=== PATIENT | female | born 1945 ===

== ENCOUNTER 2019-11-28 20:02 | Observation (INO) | payer MEDICARE, OTHER ==
[2019-11-28] MEDS ORDERED: Aspirin 81 MG Tab.Chew PO ONE (20:20)
[2019-11-28] MEDS: Sodium Chloride 0.9% 10 ML Syringe FLUSH PRN (20:25)
--- NOTE | 2019-11-28 20:38 | EDM.PDOC ---
<Roxy Carroll Cora - Last Filed: 11/28/19 22:36> ED HPI GENERAL MEDICAL PROBLEM - General Chief Complaint: Chest Pain Stated Complaint: CHEST PAIN (HEART ATTACK 05/2019) Time Seen by Provider: 11/28/19 20:19 Source of Information: Reports: Patient, RN Notes Reviewed History Limitations: Reports: No Limitations - History of Present Illness INITIAL COMMENTS - FREE TEXT/NARRATIVE: Patient is a 73-year-old female who presents to the ED for evaluation of her chest pain. Patient notes that around 1:00 PM today, she developed some chest pressure, but then it went away. She states that the pain returned after she ate supper at about 730, she states this was when it was at its worst. She states that she is having chest pressure with bilateral shoulder pain, she states that this is similar to symptoms she was having when she had her heart attack in May 2019. For which she subsequently had 2 stents placed in the RCA. This was performed by a provider in [place]. Patient states she did not take anything at home for management of this, she came to the ER for evaluation, but she states she is chest pain-free at this time. She denies any other sick- like symptoms, fever/chills, cough/shortness of breath, nausea/vomiting/diarrhea, she did not become diaphoretic. Bilateral Shoulder Pain Score (Numeric/FACES): 4 - Related Data Allergies Allergy/AdvReac Type Severity Reaction Status Date / Time No Known Allergies Allergy Verified 11/28/19 20:11 Home Meds: Home Meds Aspirin [Aspirin EC] 81 mg PO DAILY 11/28/19 [History] Metoprolol Tartrate 12.5 mg PO BID 11/28/19 [History] Ticagrelor [Brilinta] 90 mg PO BID 11/28/19 [History] atorvaSTATin Calcium [Atorvastatin Calcium] 80 mg PO DAILY 11/28/19 [History] lisinopriL [Lisinopril] 5 mg PO DAILY 11/28/19 [History] Past Medical History Cardiovascular History: Reports: High Cholesterol, Hypertension, [place] (May 2019) [employer] History: Reports: - Past Surgical History HEENT Surgical History: Reports: Cataract Surgery Cardiovascular Surgical History: Reports: Coronary Artery Stent (x2 in RCA) Social & Family History - Family History Family Medical History: Noncontributory - Tobacco Use Smoking Status *Q: Current Every Day Smoker Years of Tobacco use: 50 Packs/Tins Daily: 1 ED ROS GENERAL - Review of Systems Review Of Systems: Comprehensive ROS is negative, except as noted in HPI. ED EXAM, GENERAL - Physical Exam Exam: See Below Exam Limited By: No Limitations General Appearance: Alert, WD/WN, No Apparent Distress Eye Exam: Bilateral Eye: EOMI, Normal Inspection, PERRL Ears: Normal External Exam Throat/Mouth: Normal Inspection, Normal Lips, Normal Teeth, Normal Gums, Normal Oropharynx, Normal Voice, No Airway Compromise Head: Atraumatic, Normocephalic Neck: Normal Inspection Respiratory/Chest: No Respiratory Distress, Lungs Clear, Normal Breath Sounds, No Accessory Muscle Use, Chest Non-Tender Cardiovascular: Normal Peripheral Pulses, Regular Rate, Rhythm, No Edema, No Murmur Peripheral Pulses: 3+: Radial (L), Radial (R) GI/Abdominal: Normal Bowel Sounds, Soft, Non-Tender, No Distention, No Mass Extremities: Normal Inspection, Normal Capillary Refill Neurological: Alert, Oriented, Normal Cognition, No Motor/Sensory Deficits Psychiatric: Normal Affect, Normal Mood Skin Exam: Warm, Dry, Intact, Normal Color, No Rash EKG INTERPRETATION EKG Date: 11/28/19 Time: 20:07 Rhythm: NSR Rate (Beats/Min): 80 [place]: Normal P-Wave: Present QRS: Normal ST-T: Depressed (slight depression in V3-V5, no t wave change) QT: Normal Comparison: NA - No Prior EKG EKG Interpretation Comments: Slight ST depression in lead V3, V4 and V5, there are no associated T wave changes with this. Otherwise EKG is unremarkable, read by myself and Dr. Raymundo. Course - Re-Assessments/Exams Free Text/Narrative Re-Assessment/Exam: 11/28/19 20:37 Patient presents to the ED for evaluation of her chest pressure/pain. EKG does demonstrate mild ST depression most visible in V3, V4 and V5. Patient will have baseline labs taken, and I did order 324 mg aspirin for initial management. 11/28/19 21:16 Laboratory evaluation demonstrates no acute abnormalities, troponin is negative at this time, due to the patient's history, Dr. Raymundo states that would be fair to have her repeat a 3-hour EKG and troponin, as we do not have an EKG to compare this to as this might just be her baseline. But he did also see the slight ischemic change in the V3 V4 and V5. Dr. Raymundo notes that if the EKG and troponin are negative in 3 hours, the patient could likely benefit from overnight hospitalization, with possible stress test in the morning. I did discuss this with the patient and she is okay with this plan at this time. 11/28/19 22:36 I did talk the patient's case over with Dr. Petit, our hospitalist, and he would be okay with admitting the patient for observation for possible stress test in the morning, if the second EKG and troponin are negative. Dr. Raymundo will assume care at this time and watch for the repeat troponin and EKG, further care and disposition will be relinquished to him at this time. Departure - Departure Disposition: Refer to Observation Clinical Impression: Cardiac ischemia Sepsis Event Note (ED) - Evaluation Sepsis Screening Result: No Definite Risk <Reinier Raymundo - Last Filed: 11/29/19 02:37> Course - Vital Signs Last Recorded V/S: Last Vital Signs Temp 36.2 C 11/28/19 20:11 Pulse 80 11/28/19 20:11 Resp 19 11/28/19 20:11 BP 154/71 H 11/28/19 20:11 Pulse Ox 97 11/28/19 20:11 - Orders/Labs/Meds Orders: Active Orders 24 hr Category Date Time Status EKG Documentation Completion [RC] ROUTINE Care 11/28/19 23:20 Active EKG Documentation Completion [RC] STAT Care 11/28/19 20:20 Active Peripheral IV Care [RC] . DIRECTED Care 11/28/19 20:20 Active Sodium Chloride 0.9% [Saline Flush] Med 11/28/19 20:19 Active 10 ml FLUSH ASDIRECTED PRN Peripheral IV Insertion Adult [OM.PC] Stat Oth 11/28/19 20:20 Ordered Medication Orders Sodium Chloride (Saline Flush) 10 ml FLUSH ASDIRECTED PRN PRN Reason: Keep Vein Open Last Admin: 11/28/19 20:25 Dose: 10 ml Documented by: LIONEL Labs: Laboratory Tests 11/28/19 11/28/19 11/28/19 Range/Units 20:20 20:20 20:20 WBC 7.34 (3.98-10.04) K/mm3 RBC 4.43 (3.98-5.22) M/mm3 Hgb 14.2 (11.2-15.7) gm/dl Hct 41.8 (34.1-44.9) % MCV 94.4 (79.4-94.8) fl MCH 32.1 (25.6-32.2) pg MCHC 34.0 (32.2-35.5) g/dl RDW Std Deviation 45.1 (36.4-46.3) fL Plt Count 228 (182-369) K/mm3 MPV 10.3 (9.4-12.3) fl Neut % (Auto) 59.1 (34.0-71.1) % Lymph % (Auto) 28.7 (19.3-51.7) % Kings % (Auto) 8.6 (4.7-12.5) % Eos % (Auto) 3.0 (0.7-5.8) Baso % (Auto) 0.3 (0.1-1.2) % Neut # (Auto) 4.34 (1.56-6.13) K/mm3 Lymph # (Auto) 2.11 (1.18-3.74) K/mm3 Kings # (Auto) 0.63 H (0.24-0.36) K/mm3 Eos # (Auto) 0.22 (0.04-0.36) K/mm3 Baso # (Auto) 0.02 (0.01-0.08) K/mm3 PT 10.4 (9.7-12.0) SECONDS INR 0.95 APTT 26 (22-31) SECONDS Sodium 139 (136-145) mEq/L Potassium 3.6 (3.5-5.1) mEq/L Chloride 104 (98-107) mEq/L Carbon Dioxide 23 (21-32) mEq/L Anion Gap 15.6 H (5-15) BUN 9 (7-18) mg/dL Creatinine 1.0 (0.55-1.02) mg/dL Est Cr Clr Drug Dosing 43.27 mL/min Estimated GFR (MDRD) 54 (>60) mL/min BUN/Creatinine Ratio 9.0 L (14-18) Glucose 141 H (83-115) mg/dL Calcium 8.9 (8.5-10.1) mg/dL Magnesium 1.7 L (1.8-2.4) mg/dl Total Bilirubin 0.5 (0.2-1.0) mg/dL AST 24 (15-37) U/L ALT 26 (14-59) U/L Alkaline Phosphatase 86 (46-116) U/L Troponin I < 0.017 (0.00-0.056) ng/mL NT-Pro-B Natriuret Pep (0-125) pg/mL Total Protein 7.2 (6.4-8.2) g/dl Albumin 3.9 (3.4-5.0) g/dl Globulin 3.3 gm/dL Albumin/Globulin Ratio 1.2 (1-2) 11/28/19 11/28/19 Range/Units 20:20 23:20 WBC (3.98-10.04) K/mm3 RBC (3.98-5.22) M/mm3 Hgb (11.2-15.7) gm/dl Hct (34.1-44.9) % MCV (79.4-94.8) fl MCH (25.6-32.2) pg MCHC (32.2-35.5) g/dl RDW Std Deviation (36.4-46.3) fL Plt Count (182-369) K/mm3 MPV (9.4-12.3) fl Neut % (Auto) (34.0-71.1) % Lymph % (Auto) (19.3-51.7) % Kings % (Auto) (4.7-12.5) % Eos % (Auto) (0.7-5.8) Baso % (Auto) (0.1-1.2) % Neut # (Auto) (1.56-6.13) K/mm3 Lymph # (Auto) (1.18-3.74) K/mm3 Kings # (Auto) (0.24-0.36) K/mm3 Eos # (Auto) (0.04-0.36) K/mm3 Baso # (Auto) (0.01-0.08) K/mm3 PT (9.7-12.0) SECONDS INR APTT (22-31) SECONDS Sodium (136-145) mEq/L Potassium (3.5-5.1) mEq/L Chloride (98-107) mEq/L Carbon Dioxide (21-32) mEq/L Anion Gap (5-15) BUN (7-18) mg/dL Creatinine (0.55-1.02) mg/dL Est Cr Clr Drug Dosing mL/min Estimated GFR (MDRD) (>60) mL/min BUN/Creatinine Ratio (14-18) Glucose (83-115) mg/dL Calcium (8.5-10.1) mg/dL Magnesium (1.8-2.4) mg/dl Total Bilirubin (0.2-1.0) mg/dL AST (15-37) U/L ALT (14-59) U/L Alkaline Phosphatase (46-116) U/L Troponin I < 0.017 (0.00-0.056) ng/mL NT-Pro-B Natriuret Pep 202 H (0-125) pg/mL Total Protein (6.4-8.2) g/dl Albumin (3.4-5.0) g/dl Globulin gm/dL Albumin/Globulin Ratio (1-2) Meds: Medications Generic Name Dose Route Start Last Admin Trade Name Freq PRN Reason Stop Dose Admin Sodium Chloride 10 ml 11/28/19 20:19 11/28/19 20:25 Saline Flush FLUSH 10 ml ASDIRECTED PRN Administration Keep Vein Open Discontinued Medications Generic Name Dose Route Start Last Admin Trade Name Freq PRN Reason Stop Dose Admin Aspirin 324 mg 11/28/19 20:20 11/28/19 20:25 Aspirin PO 11/28/19 20:21 324 mg ONETIME ONE Administration - Re-Assessments/Exams Free Text/Narrative Re-Assessment/Exam: 11/29/19 00:01 Case received from SB Carrasco. I have interviewed the patient and her , and examined the patient. She states that the chest discomfort that developed around 13:00 came on while she was watching television and lasted for about 15 minutes. The chest discomfort that came on around 19:30 also came on while she was watching television, but went more into her arms, and lasted until she got here, around 20:00. At this time, she is completely pain-free. Repeat ECG at 22:50 demonstrates a normal sinus rhythm at 65 bpm. No atrial enlargement. No AV block. There are no ischemic changes; the ST depressions seen on the ECG at 20:07 have resolved. Normal R-wave progression. No LAD or RAD. No LVH or RVH. No intraventricular conduction delays. The QTc is within normal limits. Repeat troponin at 23:20 remains undetectably low. The presence of recurrent retrosternal chest pressure and bilateral shoulder discomfort, similar to when the patient had an acute [place] in May 2019, associated with ST depressions that have since resolved along with the resolution of her symptoms, strongly suggests that her symptoms were cardiac in etiology. The fact that her symptoms developed while at rest are particularly concerning. I believe the patient would benefit from a coronary angiogram, however, a [facility] may want her to undergo a cardiac stress test first. I recommended that I call [place] to discuss her case with a [facility] In, and follow their advice. The patient is agreeable. 11/29/19 00:21 Case discussed with Nereyda at [facility] at 00:11. Case then discussed with Dr. Zimmer, [facility] In at [facility], at 00:15. He feels that the patient needs a cardiac stress test, either tomorrow, if available (tomorrow is November 28, and may be a holiday), or Monday. If she redevelops chest discomfort before then, particularly if at rest, then she will need a coronary angiogram. 11/29/19 00:32 Rae TRAMMELL checked, and cardiac stress tests are being performed tomorrow. I will therefore place the patient into observation and write a bridge orders for her to undergo a cardiac stress test in the morning. As per Roxy's note above, Dr. Petit has already been notified, therefore I will not wake him to notify him of the admission. Departure - Departure Time of Disposition: 00:33 Condition: Good Sepsis Event Note (ED) - Focused Exam Vital Signs: Vital Signs Temp Pulse Resp BP Pulse Ox 11/28/19 20:11 36.2 C 80 19 154/71 H 97
--- NOTE | 2019-11-28 21:09 | CR ---
Chest: Portable view of the chest was obtained. Comparison: No prior chest imaging is available. Heart size is normal. Slight tortuosity of the thoracic aorta is seen. Mild scoliosis is present within the spine. Lungs are clear with no acute parenchymal change. Impression: 1. Findings as noted above. 2. Nothing acute is appreciated. Diagnostic code #2 This report was dictated in MDT
--- NOTE | 2019-11-29 07:48 | PCM.HP.2 ---
H&P History of Present Illness - General Date of Service: 11/29/19 Admit Problem/Dx: Admission Diagnosis/Problem Admission Diagnosis/Problem Chest pain Source of Information: Patient, Old Records, Provider, RN, RN Notes Reviewed History Limitations: Reports: No Limitations - History of Present Illness Initial Comments - Free Text/Narative: Irena Quezada is a 73 yo female who presented to ED on 11/28/2019 with complaints of chest pressure. She reports the pressure started around 1300 hrs. earlier in the day but then resolved, resuming around 1930 at night. She states the latter episode was the worst and that it was accompanied with bilateral shoulder pain. States both episodes of pain came on while she was watching TV and lasted about a half an hour. She reports she had similar symptoms in May/2019 when she had a prior [place]. At that time 2 stents were placed in the RCA. This was reportedly done in [place]. She did not take any aspirin or nitro but presented to the emergency room. On arrival she was free of any symptoms. Denies any other infectious symptoms such as fever, chills, cough, shortness of breath, nausea, vomiting, diarrhea. In the ED twelve-lead EKG was obtained showing sinus rhythm at [address] depression noted in V3 through V5 but no T wave change. She is given 325 mg of aspirin. Temp was 6.2 C. Pulse 80. Respirations 19. Blood pressure 154/71. Pulse ox 97%. CBC is unremarkable. INR is 0.95. aPTT is 26. Anion gap is only slightly elevated at 15.6. Glucose is elevated at 141. Magnesium is slightly low at 1.7. Otherwise CMP is unremarkable. Troponin is negative at less than 0.0172. proBNP is 202. Repeat twelve-lead EKG is obtained showing no signs of ischemia or changes. ED provider contacted Dr. Davis, radio personality at [facility], who recommended patient undergo a cardiac stress test. He reports if she develops recurrence of chest pressure that she will need a coronary angiogram. Chest x-ray showed nothing acute. She carries a history of HLD, HTN, [place] in May 2019, and she is a current daily smoker. She is a full code. She does not have a PCP. She is subsequently admitted observation status with telemetry to the medical floor for further work-up of her chest pressure in the morning stress test. Bilateral Shoulder Pain Score (Numeric/FACES): 4 - Related Data Allergies/Adverse Reactions: Allergies Allergy/AdvReac Type Severity Reaction Status Date / Time No Known Allergies Allergy Verified 11/28/19 20:11 Home Medications: Home Meds Aspirin [Aspirin EC] 81 mg PO BEDTIME 11/28/19 [History] Metoprolol Tartrate 12.5 mg PO BID 11/28/19 [History] Ticagrelor [Brilinta] 90 mg PO BID 11/28/19 [History] atorvaSTATin Calcium [Atorvastatin Calcium] 80 mg PO BEDTIME 11/28/19 [History] lisinopriL [Lisinopril] 5 mg PO DAILY 11/28/19 [History] Past Medical History HEENT History: Reports: Other (See Below) Other HEENT History: Pt wears upper and lower dentures Cardiovascular History: Reports: High Cholesterol, Hypertension, [place]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: - Past Surgical History HEENT Surgical History: Reports: Cataract Surgery Cardiovascular Surgical History: Reports: Coronary Artery Stent Social & Family History - Family History Family Medical History: Noncontributory - Tobacco Use Smoking Status *Q: Current Every Day Smoker Years of Tobacco use: 50 Packs/Tins Daily: 1 Used Tobacco, but Quit: No Second Hand Smoke Exposure: Yes - Caffeine Use Caffeine Use: Reports: Coffee - Alcohol Use Days Per Week of Alcohol Use: 7 Number of Drinks Per Day: 1 Total Drinks Per Week: 7 Date of Last Drink: 11/27/19 Time of Last Drink: 23:00 - Recreational Drug Use Recreational Drug Use: No H&P Review of Systems - Review of Systems: Review Of Systems: See Below General: Reports: No Symptoms. Denies: Fever, Chills, Malaise, Weakness, Fatigue HEENT: Reports: No Symptoms. Denies: Headaches, Sore Throat Pulmonary: Reports: No Symptoms. Denies: Shortness of Breath, Pleuritic Chest Pain, Cough, Sputum Cardiovascular: Reports: No Symptoms. Denies: Chest Pain, Palpitations, Dyspnea on Exertion, Orthopnea, Edema Gastrointestinal: Reports: No Symptoms. Denies: Abdominal Pain, Constipation, Diarrhea, Nausea, Vomiting Genitourinary: Reports: No Symptoms. Denies: Pain Musculoskeletal: Reports: No Symptoms. Denies: Neck Pain, Shoulder Pain, Arm Pain, Back Pain Skin: Reports: No Symptoms. Denies: Cyanosis Psychiatric: Reports: No Symptoms. Denies: Confusion Neurological: Reports: No Symptoms. Denies: Numbness, Tingling, Difficulty Walking, Weakness, Gait Disturbance Hematologic/Lymphatic: Reports: No Symptoms Immunologic: Reports: No Symptoms Exam - Exam Exam: See Below - Vital Signs Vital Signs: Last Vital Signs Temp 97.7 F 11/29/19 04:51 Pulse 71 11/29/19 04:51 Resp 16 11/29/19 04:51 BP 138/100 H 11/29/19 04:51 Pulse Ox 92 L 11/29/19 04:51 Weight: 155 lb - Exam Quality Assessment: DVT Prophylaxis. No: Supplemental Oxygen, Urinary Catheter General: Alert, Oriented, Cooperative. No: Mild Distress HEENT: Conjunctiva Clear, EACs Clear, Hearing Intact, Mucosa Moist & Kinnelon, Pupils Equal Neck: Supple, Trachea Midline Lungs: Clear to Auscultation, Normal Respiratory Effort Cardiovascular: Regular Rate, Regular Rhythm GI/Abdominal Exam: Normal Bowel Sounds, Soft, Non-Tender, No Distention (Female) Exam: Deferred Rectal (Female) Exam: Deferred Back Exam: Normal Inspection, Full Range of Motion Extremities: Normal Inspection, Normal Range of Motion, Non-Tender, No Pedal Edema, Normal Capillary Refill Peripheral Pulses: 2+: Radial (L), Radial (R), Dorsalis Pedis (L), Dorsalis Pedis (R) Skin: Warm, Dry, Intact Neurological: Cranial Nerves Intact (Grossly ) Neuro Extensive - Mental Status: Alert, Oriented x3, Normal Mood/Affect - Patient Data Lab Results Last 24 hrs: Laboratory Results - last 24 hr 11/28/19 11/28/19 11/28/19 Range/Units 20:20 20:20 20:20 WBC 7.34 (3.98-10.04) K/mm3 RBC 4.43 (3.98-5.22) M/mm3 Hgb 14.2 (11.2-15.7) gm/dl Hct 41.8 (34.1-44.9) % MCV 94.4 (79.4-94.8) fl MCH 32.1 (25.6-32.2) pg MCHC 34.0 (32.2-35.5) g/dl RDW Std Deviation 45.1 (36.4-46.3) fL Plt Count 228 (182-369) K/mm3 MPV 10.3 (9.4-12.3) fl Neut % (Auto) 59.1 (34.0-71.1) % Lymph % (Auto) 28.7 (19.3-51.7) % Beadle % (Auto) 8.6 (4.7-12.5) % Eos % (Auto) 3.0 (0.7-5.8) Baso % (Auto) 0.3 (0.1-1.2) % Neut # (Auto) 4.34 (1.56-6.13) K/mm3 Lymph # (Auto) 2.11 (1.18-3.74) K/mm3 Beadle # (Auto) 0.63 H (0.24-0.36) K/mm3 Eos # (Auto) 0.22 (0.04-0.36) K/mm3 Baso # (Auto) 0.02 (0.01-0.08) K/mm3 PT 10.4 (9.7-12.0) SECONDS INR 0.95 APTT 26 (22-31) SECONDS Sodium 139 (136-145) mEq/L Potassium 3.6 (3.5-5.1) mEq/L Chloride 104 (98-107) mEq/L Carbon Dioxide 23 (21-32) mEq/L Anion Gap 15.6 H (5-15) BUN 9 (7-18) mg/dL Creatinine 1.0 (0.55-1.02) mg/dL Est Cr Clr Drug Dosing 43.27 mL/min Estimated GFR (MDRD) 54 (>60) mL/min BUN/Creatinine Ratio 9.0 L (14-18) Glucose 141 H (83-115) mg/dL Calcium 8.9 (8.5-10.1) mg/dL Magnesium 1.7 L (1.8-2.4) mg/dl Total Bilirubin 0.5 (0.2-1.0) mg/dL AST 24 (15-37) U/L ALT 26 (14-59) U/L Alkaline Phosphatase 86 (46-116) U/L Troponin I < 0.017 (0.00-0.056) ng/mL NT-Pro-B Natriuret Pep (0-125) pg/mL Total Protein 7.2 (6.4-8.2) g/dl Albumin 3.9 (3.4-5.0) g/dl Globulin 3.3 gm/dL Albumin/Globulin Ratio 1.2 (1-2) SARS Virus RNA (PCR) (NEGATIVE) 11/28/19 11/28/19 11/29/19 Range/Units 20:20 23:20 01:44 WBC (3.98-10.04) K/mm3 RBC (3.98-5.22) M/mm3 Hgb (11.2-15.7) gm/dl Hct (34.1-44.9) % MCV (79.4-94.8) fl MCH (25.6-32.2) pg MCHC (32.2-35.5) g/dl RDW Std Deviation (36.4-46.3) fL Plt Count (182-369) K/mm3 MPV (9.4-12.3) fl Neut % (Auto) (34.0-71.1) % Lymph % (Auto) (19.3-51.7) % Beadle % (Auto) (4.7-12.5) % Eos % (Auto) (0.7-5.8) Baso % (Auto) (0.1-1.2) % Neut # (Auto) (1.56-6.13) K/mm3 Lymph # (Auto) (1.18-3.74) K/mm3 Beadle # (Auto) (0.24-0.36) K/mm3 Eos # (Auto) (0.04-0.36) K/mm3 Baso # (Auto) (0.01-0.08) K/mm3 PT (9.7-12.0) SECONDS INR APTT (22-31) SECONDS Sodium (136-145) mEq/L Potassium (3.5-5.1) mEq/L Chloride (98-107) mEq/L Carbon Dioxide (21-32) mEq/L Anion Gap (5-15) BUN (7-18) mg/dL Creatinine (0.55-1.02) mg/dL Est Cr Clr Drug Dosing mL/min Estimated GFR (MDRD) (>60) mL/min BUN/Creatinine Ratio (14-18) Glucose (83-115) mg/dL Calcium (8.5-10.1) mg/dL Magnesium (1.8-2.4) mg/dl Total Bilirubin (0.2-1.0) mg/dL AST (15-37) U/L ALT (14-59) U/L Alkaline Phosphatase (46-116) U/L Troponin I < 0.017 (0.00-0.056) ng/mL NT-Pro-B Natriuret Pep 202 H (0-125) pg/mL Total Protein (6.4-8.2) g/dl Albumin (3.4-5.0) g/dl Globulin gm/dL Albumin/Globulin Ratio (1-2) SARS Virus RNA (PCR) Negative (NEGATIVE) Result Diagrams: 11/28/19 20:20 11/28/19 20:20 Sepsis Event Note - Evaluation Sepsis Screening Result: No Definite Risk - Focused Exam Vital Signs: Vital Signs Temp Temp Pulse Pulse Resp BP BP 11/29/19 04:51 97.7 F 71 16 138/100 H 11/29/19 01:54 98.2 F 65 16 147/106 H 11/28/19 20:11 97.1 F 80 19 154/71 H Pulse Ox 11/29/19 04:51 92 L 11/29/19 01:54 95 11/28/19 20:11 97 Date Exam was Performed: 11/29/19 Time Exam was Performed: 12:55 - Problem List (1) Chest pressure SNOMED Code(s): 804017690 ICD Code: R07.89 - OTHER CHEST PAIN Status: Acute Priority: High Current Visit: Yes (2) History of [place] (myocardial infarction) SNOMED Code(s): 500650704 ICD Code: I25.2 - OLD MYOCARDIAL INFARCTION Status: Chronic Priority: High Current Visit: Yes (3) History of heart artery stent SNOMED Code(s): 243758106, 145964387 ICD Code: Z95.5 - PRESENCE OF CORONARY ANGIOPLASTY IMPLANT AND GRAFT Status: Chronic Priority: High Current Visit: Yes (4) Current smoker SNOMED Code(s): 72889305 ICD Code: F17.200 - NICOTINE DEPENDENCE, UNSPECIFIED, UNCOMPLICATED Status: Chronic Priority: Medium Current Visit: Yes (5) HTN (hypertension) SNOMED Code(s): 91552137 ICD Code: I10 - ESSENTIAL (PRIMARY) HYPERTENSION Status: Chronic Priority: Medium Current Visit: Yes Qualifiers: Hypertension type: unspecified Qualified Code(s): I10 - Essential (primary) hypertension (6) HLD (hyperlipidemia) SNOMED Code(s): 42296153 ICD Code: E78.5 - HYPERLIPIDEMIA, UNSPECIFIED Status: Chronic Priority: Medium Current Visit: Yes Qualifiers: Hyperlipidemia type: unspecified Qualified Code(s): E78.5 - Hyperlipidemia, unspecified (7) Hypomagnesemia SNOMED Code(s): 712168880 ICD Code: E83.42 - HYPOMAGNESEMIA Status: Acute Priority: High Current Visit: Yes Problem List Initiated/Reviewed/Updated: Yes Orders Last 24hrs: Active Orders 24 hr Category Date Time Status Patient Status [ADT] Routine ADT 11/29/19 01:03 Active Up With Assistance [RC] BID Care 11/29/19 03:21 Active NPO Now [Nothing per Oral Now Diet] [DIET] Diet 11/29/19 Breakfast Active Cardiolite Stress Test [Myocardial Perf Spect Multi] [ Exams 11/29/19 07:00 Ordered NM] Routine Regadenoson [Lexiscan] Med 11/29/19 07:46 Once 0.4 mg IVPUSH ONETIME ONE Sodium Chloride 0.9% [Saline Flush] Med 11/28/19 20:19 Active 10 ml FLUSH ASDIRECTED PRN Peripheral IV Insertion Adult [OM.PC] Stat Oth 11/28/19 20:20 Ordered Code Status [Resuscitation Status] Routine Resus Stat 11/29/19 03:20 Ordered Medication Orders Regadenoson (Lexiscan) 0.4 mg IVPUSH ONETIME ONE Stop: 11/29/19 07:47 Sodium Chloride (Saline Flush) 10 ml FLUSH ASDIRECTED PRN PRN Reason: Keep Vein Open Last Admin: 11/28/19 20:25 Dose: 10 ml Documented by: LIONEL Assessment/Plan Comment:: Chest pressure History of [place] (myocardial infarction) History of heart artery stent HTN (hypertension) HLD (hyperlipidemia) Chest pain beginning 11/28/19 around 1300 and again around 1930 while at rest lasting about a half hour Prior [place] in 05/2019 with 2 stents placed in RCA in [place] Reports this pain is similar to then On home 81mg ASA, Metoprolol, Atorvastatin, lisinopril, Brilinta BP 157/71 in ED Troponin negative x2 in ED 324mg ASA given in ED 12-lead EKG and repeat 12-lead EKG shows no signs of ischemia Denies any infectious symptoms Dr. Zimmer, Cardiology contacted by ED provider - recommends AM stress test, angiogram if pain returns COVID-19 screen negative PLAN -Admit to medical floor observation status with telemetry -NPO until after stress test - then heart healthy diet -Hold AM meds, resume after stress test completion -Lexiscan stress test in AM -Repeat Troponin -Check lipid panel Hypomagnesemia Magnesium 1.7 in ED PLAN - Supplement Current smoker Reports long history of 1ppd smoking PLAN -Nicotine patches after stress test -Cessation counseling -Offer patches at discharge DVT Prophylaxis: Lovenox GI Prophylaxis: Not indicated Code status: Full code PCP: None locally, sees PCP and Cardiology in [place]. Needs to establish locally. She has Cardiology scheduled with provider who performed her stenting in March. Social: Patient lives with her . They spend suppers in and [place] in [place]. Disposition: Patient will be admitted observation status on telemetry for further workup of chest pain and AM stress test. Likely discharge within 24-48 hours. - Mortality Measure Prognosis:: Good
[2019-11-29] MEDS ORDERED: Magnesium Sulfate/Water 2 GM in Premix Bag 1 BAG IV ONE (08:39)
[2019-11-29] MEDS ORDERED: Enoxaparin 40 MG/0.4 ML Syringe SUBCUT SCH (09:00)
[2019-11-29] MEDS: Nicotine 21 MG/24 Hr Patch TRDERM SCH (09:37)
--- NOTE | 2019-11-29 09:39 | PCM.PRNOTE ---
- Free Text/Narrative Note: Date of service: 11/29/2019 Procedure: Regadenoson (Lexiscan) stress test Ordering provider: Dr. Gonzales Petit Indication: Chest pain Baseline EKG: Sinus bradycardia at 58 bpm with T-wave flattening in aVL and V2 - non-specific. T-wave inversion in V1 - normal variant. Risks and benefits were discussed with the patient and consent form was signed. The patient received Regadenoson (Lexiscan) 0.4 mg IV and a nuclear agent using standard protocol. The patient was seated for the procedure. Lexiscan test: Heart rate: 83 bpm; Blood pressure: 171/78 mm Hg; Oxygenation: 96%. EKG changes of ischemia during stress test or in recovery: None (Non-specific T- wave inversion in V2; Questionable early repolarization changes in inferior leads. Very minimal ST segment elevation) Arrhythmias: None Adverse effects of Lexiscan: Chest pressure and dizziness both rapidly and spontaneously resolving prior to completion of test Test terminated due to: End of protocol Impression: 1. Indeterminate Lexiscan stress test ECG for ischemia. Non-diagnostic per Lexiscan protocol. No definitive signs of ischemia seen. Questionable minor ST segment changes as above. 2. Nuclear images pending and will be reported separately per Radiologist.
[2019-11-29] MEDS ORDERED: TICAGRELOR 90 MG PO SCH (13:15)
[2019-11-29] MEDS ORDERED: Metoprolol Tartrate 25 MG Tab **PTOM PO SCH (13:15)
--- NOTE | 2019-11-29 13:19 | NM ---
Cardiolite cardiac scan with Lexiscan Technique: I have data stating the patient was stressed utilizing Lexiscan protocol. Stress dose of technetium 99m Cardiolite was 11.1 mCi. Rest dose was 31.0 mCi. SPECT imaging was obtained 3 planes for both portions of the study. Study was also gated. Low-dose chest CT performed to allow for attenuation correction. Comparison: No prior cardiac imaging is available. Findings: Inferior defect is seen which is noted on the stress study and shows improvement on the rest exam. Findings are felt compatible with an area of reversible ischemia. Activity is otherwise homogeneous within the left ventricular myocardium. Ejection fraction is normal which is about 70 percent. Wall thickening and wall motion is normal. Impression: 1. Findings compatible with reversible ischemia within the inferior wall. 2. Other portions of the Cardiolite cardiac exam are unremarkable. Diagnostic code #5 This report was dictated in MDT
[2019-11-29] MEDS: LISINOPRIL 5 MG PO SCH (13:31)
[2019-11-29] MEDS ORDERED: Acetaminophen 325 MG Tab PO PRN (15:31)
[2019-11-29] MEDS ORDERED: Ondansetron 4 MG/2 ML SDV IV PRN (15:31)
[2019-11-29] MEDS ORDERED: Nitroglycerin 0.4 MG Tab.SL SL PRN (15:38)
[2019-11-29] MEDS: amLODIPine 5 MG Tab PO SCH (18:32)
[2019-11-29] MEDS ORDERED: Rosuvastatin 10 MG Tab PO SCH (21:00)
[2019-11-29] MEDS ORDERED: Aspirin 81 MG Tab.EC PO SCH (21:00)
[2019-11-29] MEDS: Metoprolol Tartrate 25 MG Tab PO SCH (21:04)
[2019-11-29] MEDS: Enoxaparin 80 MG/0.8 ML Syringe SUBCUT SCH (21:06)
[2019-11-30] MEDS: Metoprolol Tartrate 25 MG Tab PO SCH (01:56)
[2019-11-30] MEDS: amLODIPine 5 MG Tab PO SCH (08:54)
[2019-11-30] MEDS: Enoxaparin 80 MG/0.8 ML Syringe SUBCUT SCH (08:54)
[2019-11-30] MEDS: Nicotine 21 MG/24 Hr Patch TRDERM SCH (09:10)
[2019-11-30] MEDS: LISINOPRIL 5 MG PO SCH (09:22)
--- NOTE | 2019-11-30 11:20 | PCM.DCSUM1 ---
Discharge Summary - Hospital Course HPI Initial Comments: Irena Quezada is a 73 yo female who presented to ED on 11/28/2019 with complaints of chest pressure. She reports the pressure started around 1300 hrs. earlier in the day but then resolved, resuming around 1930 at night. She states the latter episode was the worst and that it was accompanied with bilateral shoulder pain. States both episodes of pain came on while she was watching TV and lasted about a half an hour. She reports she had similar symptoms in May/2019 when she had a prior DC. At that time 2 stents were placed in the RCA. This was reportedly done in [place]. She did not take any aspirin or nitro but presented to the emergency room. On arrival she was free of any symptoms. Denies any other infectious symptoms such as fever, chills, cough, shortness of breath, nausea, vomiting, diarrhea. In the ED twelve-lead EKG was obtained showing sinus rhythm at [address] depression noted in V3 through V5 but no T wave change. She is given 325 mg of aspirin. Temp was 6.2 C. Pulse 80. Respirations 19. Blood pressure 154/71. Pulse ox 97%. CBC is unremarkable. INR is 0.95. aPTT is 26. Anion gap is only slightly elevated at 15.6. Glucose is elevated at 141. Magnesium is slightly low at 1.7. Otherwise CMP is unremarkable. Troponin is negative at less than 0.0172. proBNP is 202. Repeat twelve-lead EKG is obtained showing no signs of ischemia or changes. ED provider contacted Dr. Davis, card dealer at [facility], who recommended patient undergo a cardiac stress test. He reports if she develops recurrence of chest pressure that she will need a coronary angiogram. Chest x-ray showed nothing acute. She carries a history of HLD, HTN, DC in May 2019, and she is a current daily smoker. She is a full code. She does not have a PCP locally but she sees a provider in [place]. She is subsequently admitted observation status with telemetry to the medical floor for further work-up of her chest pressure in the morning stress test. Addendum: Patients stress test returns positive for reversible ischemia in the inferior wall. Contacted ROSALINA Lehman one-call to discuss results with Dr. Phelan, Offender Employment Specialist on-call. He suggests keeping patient admitted overnight and transferring in AM. He recommends 1mg/kg Lovenox in the meantime. He states patient can be admitted to hospitalist service in AM with plan for angiogram on Monday. Patient updated on results and agrees to plan. Additional diagnosis: Positive stress test, Unstable Angina Diagnosis: Stroke: No - Discharge Data Discharge Date: 11/30/19 (Admit date: 11/28/19) Discharge Disposition: DC/Tfer to Acute Hospital 02 Condition: Stable - Referral to Home Health Primary Care Physician: PCP None - Discharge Diagnosis/Problem(s) (1) Chest pressure SNOMED Code(s): 577114862 ICD Code: R07.89 - OTHER CHEST PAIN Status: Acute Priority: High Current Visit: Yes (2) History of DC (myocardial infarction) SNOMED Code(s): 402253205 ICD Code: I25.2 - OLD MYOCARDIAL INFARCTION Status: Chronic Priority: High Current Visit: Yes (3) History of heart artery stent SNOMED Code(s): 719302216, 277985296 ICD Code: Z95.5 - PRESENCE OF CORONARY ANGIOPLASTY IMPLANT AND GRAFT Status: Chronic Priority: High Current Visit: Yes (4) Current smoker SNOMED Code(s): 31464701 ICD Code: F17.200 - NICOTINE DEPENDENCE, UNSPECIFIED, UNCOMPLICATED Status: Chronic Priority: Medium Current Visit: Yes (5) HTN (hypertension) SNOMED Code(s): 84539875 ICD Code: I10 - ESSENTIAL (PRIMARY) HYPERTENSION Status: Chronic Priority: Medium Current Visit: Yes Qualifiers: Hypertension type: unspecified Qualified Code(s): I10 - Essential (primary) hypertension (6) HLD (hyperlipidemia) SNOMED Code(s): 78298190 ICD Code: E78.5 - HYPERLIPIDEMIA, UNSPECIFIED Status: Chronic Priority: Medium Current Visit: Yes Qualifiers: Hyperlipidemia type: unspecified Qualified Code(s): E78.5 - Hyperlipidemia, unspecified (7) Hypomagnesemia SNOMED Code(s): 378830520 ICD Code: E83.42 - HYPOMAGNESEMIA Status: Acute Priority: High Current Visit: Yes (8) Unstable angina SNOMED Code(s): 8362715, 346477887 ICD Code: I20.0 - UNSTABLE ANGINA Status: Acute Priority: High Current Visit: Yes (9) CAD (coronary artery disease) SNOMED Code(s): 22764376 ICD Code: I25.10 - ATHSCL HEART DISEASE OF [place] CORONARY ARTERY W/O ANG PCTRS Status: Chronic Priority: High Current Visit: Yes Qualifiers: Coronary Disease-Associated Artery/Lesion type: [place] artery [place] vs. transplanted heart: [place] heart Associated angina: with unstable angina [place] lified Code(s): I25.110 - Atherosclerotic heart disease of [place] coronary artery with unstable angina pectoris (10) Positive cardiac stress test Status: Acute Priority: High Current Visit: Yes - Patient Summary/Data Labs Pending at D/C: None Hospital Course: Irena was admitted to the floor observation status on telemetry after presenting to our ED after 2 episodes of chest pressure lasting approximately one half an h our each. She does carry a cardiac history, having had 2 stents placed in [place] this past May in her RCA. She also carries a history of hyperlipidemia and hypertension, along with being a pack-a-day smoker. She was taken the morning of 11/29/2019 for a Lexiscan stress test which revealed subtle changes in the inferior leads, namely repolarization abnormality which developed. Nuclear med portion showed findings compatible with reversible ischemia within the inferior wall. [place], on-call card dealer with [facility] in [place] was contacted who recommended starting 1 omkar per kilo Lovenox twice daily, continuing 81 mg of aspirin, and keeping the patient overnight. He then suggested recall in the morning to get her transferred for planned angiogram on 12/02/2019. Throughout her stay she has had no chest pain or pressure. Her magnesium was low at 1.7 and this was supplemented. She has been up ambulating without chest pain or pressure. Troponins have remained negative throughout her stay x4. Her metoprolol was increased last night which resulted in mild bradycardia this morning. Otherwise repeat twelve-lead EKG showed no changes. Metoprolol was then decreased back to her home dose. She has been on Brilinta with her last dose being 11/29/2019 at 1330. Lipid panel was obtained showing triglycerides of 95, total cholesterol of 107, LDL of 49, and HDL of 41. She is on atorvastatin 80 mg p.o. at bedtime. Today Dr. Porras, on- call hospitalist with [facility] in [place] was contacted and report was given. He did accept care of the patient. She will be transferred via ambulance to their facility. - Patient Instructions Diet: Heart Healthy Diet Activity: As Tolerated - Discharge Plan *PRESCRIPTION DRUG MONITORING PROGRAM REVIEWED*: No *COPY OF PRESCRIPTION DRUG MONITORING REPORT IN PATIENT JULITA: No Home Medications: Home Meds Aspirin [Aspirin EC] 81 mg PO BEDTIME 11/28/19 [History] Metoprolol Tartrate 12.5 mg PO BID 11/28/19 [History] Ticagrelor [Brilinta] 90 mg PO BID 11/28/19 [History] atorvaSTATin Calcium [Atorvastatin Calcium] 80 mg PO BEDTIME 11/28/19 [History] lisinopriL [Lisinopril] 5 mg PO DAILY 11/28/19 [History] Oxygen Therapy Mode: Room Air Patient Handouts: Steps to Quit Smoking Forms: ED Department Discharge Referrals: cardiology, heart doctor [Other] Avelina Crum PA-C [Physician Civil Defense Director] - 12/04/19 1:00 pm (1pm is checkin time appt. is 1:30, please bring insurance cards and photo ID. This is to establish care.) - Discharge Summary/Plan Comment DC Time >30 min.: Yes (60 mins ) - General Info Date of Service: 11/30/19 Admission Dx/Problem (Free Text: Admission Diagnosis/Problem Admission Diagnosis/Problem Chest pain Functional Status: Reports: Pain Controlled, Tolerating Diet, Ambulating, Urinating. Denies: New Symptoms - Review of Systems General: Reports: No Symptoms. Denies: Fever, Weakness, Fatigue, Malaise, Chills HEENT: Reports: No Symptoms. Denies: Headaches, Sore Throat Pulmonary: Reports: No Symptoms. Denies: Shortness of Breath, Pleuritic Chest Pain, Cough, Sputum, Wheezing Cardiovascular: Reports: No Symptoms. Denies: Chest Pain, Palpitations, Edema Gastrointestinal: Reports: No Symptoms. Denies: Abdominal Pain, Constipation, Diarrhea, Nausea, Vomiting Genitourinary: Reports: No Symptoms. Denies: Pain Musculoskeletal: Reports: No Symptoms Skin: Reports: No Symptoms. Denies: Cyanosis Neurological: Reports: No Symptoms. Denies: Confusion, Numbness, Tingling, Difficulty Walking, Weakness, Gait Disturbance Psychiatric: Reports: No Symptoms - Patient Data Vitals - Most Recent: Last Vital Signs Temp 97.9 F 11/30/19 07:58 Pulse 52 L 11/30/19 07:58 Resp 18 11/30/19 07:58 BP 142/64 H 11/30/19 09:22 Pulse Ox 96 11/30/19 07:58 Weight - Most Recent: 150 lb 8 oz I&O - Last 24 hours: Intake & Output 11/29/19 11/30/19 11/30/19 22:59 06:59 14:59 Intake Total 1040 650 Output Total 400 900 Balance 640 -250 Lab Results - Last 24 hrs: Laboratory Results - last 24 hr 11/30/19 11/30/19 Range/Units 05:20 05:20 WBC 5.87 (3.98-10.04) K/mm3 RBC 4.52 (3.98-5.22) M/mm3 Hgb 14.3 (11.2-15.7) gm/dl Hct 43.1 (34.1-44.9) % MCV 95.4 H (79.4-94.8) fl MCH 31.6 (25.6-32.2) pg MCHC 33.2 (32.2-35.5) g/dl RDW Std Deviation 45.9 (36.4-46.3) fL Plt Count 220 (182-369) K/mm3 MPV 10.7 (9.4-12.3) fl Neut % (Auto) 49.8 (34.0-71.1) % Lymph % (Auto) 33.7 (19.3-51.7) % [place] % (Auto) 11.1 (4.7-12.5) % Eos % (Auto) 4.4 (0.7-5.8) Baso % (Auto) 0.7 (0.1-1.2) % Neut # (Auto) 2.92 (1.56-6.13) K/mm3 Lymph # (Auto) 1.98 (1.18-3.74) K/mm3 [place] # (Auto) 0.65 H (0.24-0.36) K/mm3 Eos # (Auto) 0.26 (0.04-0.36) K/mm3 Baso # (Auto) 0.04 (0.01-0.08) K/mm3 Sodium 142 (136-145) mEq/L Potassium 3.9 (3.5-5.1) mEq/L Chloride 107 (98-107) mEq/L Carbon Dioxide 28 (21-32) mEq/L Anion Gap 10.9 (5-15) BUN 8 (7-18) mg/dL Creatinine 0.9 (0.55-1.02) mg/dL Est Cr Clr Drug Dosing 48.07 mL/min Estimated GFR (MDRD) > 60 (>60) mL/min BUN/Creatinine Ratio 8.9 L (14-18) Glucose 87 (83-115) mg/dL Calcium 8.8 (8.5-10.1) mg/dL Magnesium 2.0 (1.8-2.4) mg/dl Troponin I < 0.017 (0.00-0.056) ng/mL Med Orders - Current: Current Medications Acetaminophen (Tylenol) 650 mg PO Q4H PRN PRN Reason: Pain (Mild 1-3)/fever Amlodipine Besylate (Norvasc) 5 mg PO DAILY [facility] Last Admin: 11/30/19 08:54 Dose: 5 mg Documented by: Aspirin (Halfprin) 81 mg PO BEDTIME [facility] Last Admin: 11/29/19 21:05 Dose: 81 mg Documented by: Enoxaparin Sodium (Lovenox) 70 mg SUBCUT Q12HR [facility] Last Admin: 11/30/19 08:54 Dose: 70 mg Documented by: Lisinopril (Prinivil) 5 mg PO DAILY [facility] Last Admin: 11/30/19 09:22 Dose: Not Given Documented by: Metoprolol Tartrate (Lopressor) 12.5 mg PO Q12H [facility] Miscellaneous Information (Remove Patch) 0 ea TRDERM DAILY [facility] Last Admin: 11/30/19 09:11 Dose: Not Given Documented by: Nicotine (Habitrol) 21 mg TRDERM DAILY [facility] Last Admin: 11/30/19 09:10 Dose: Not Given Documented by: Nitroglycerin (Nitrostat) 0.4 mg SL Q5M PRN PRN Reason: Chest Pain Ondansetron HCl (Zofran) 4 mg IV Q6H PRN PRN Reason: Nausea/Vomiting Rosuvastatin Calcium (Crestor) 20 mg PO BEDTIME [facility] Last Admin: 11/29/19 21:05 Dose: 20 mg Documented by: Sodium Chloride (Saline Flush) 10 ml FLUSH ASDIRECTED PRN PRN Reason: Keep Vein Open Last Admin: 11/28/19 20:25 Dose: 10 ml Documented by: Discontinued Medications Aspirin (Aspirin) 324 mg PO ONETIME ONE Stop: 11/28/19 20:21 Last Admin: 11/28/19 20:25 Dose: 324 mg Documented by: Enoxaparin Sodium (Lovenox) 40 mg SUBCUT DAILY [facility] Last Admin: 11/29/19 09:36 Dose: 40 mg Documented by: Magnesium Sulfate 2 gm/ Premix 50 mls @ 25 mls/hr IV ONETIME ONE Stop: 11/29/19 10:38 Last Admin: 11/29/19 09:37 Dose: 25 mls/hr Documented by: Metoprolol Tartrate (Lopressor) 12.5 mg PO BID [facility] Last Admin: 11/29/19 13:30 Dose: 12.5 mg Documented by: Metoprolol Tartrate (Lopressor) 25 mg PO Q6H [facility] Last Admin: 11/30/19 01:56 Dose: 25 mg Documented by: Metoprolol Tartrate (Lopressor) 25 mg PO Q12H [facility] Metoprolol Tartrate (Lopressor) 12.5 mg PO BID [facility] Regadenoson (Lexiscan) 0.4 mg IVPUSH ONETIME ONE Stop: 11/29/19 07:47 Last Admin: 11/29/19 07:49 Dose: 0.4 mg Documented by: Ticagrelor (Brilinta) 90 mg PO BID [facility] Last Admin: 11/29/19 13:30 Dose: 90 mg Documented by: - Exam Quality Assessment: Reports: DVT Prophylaxis General: Reports: Alert, Oriented, Cooperative, No Acute Distress HEENT: Reports: Pupils Equal, Pupils Reactive, Mucous Membr. Moist/[place] Neck: Reports: Supple, Trachea Midline Lungs: Reports: Clear to Auscultation, Normal Respiratory Effort Cardiovascular: Reports: Regular Rhythm, Bradycardia GI/Abdominal Exam: Normal Bowel Sounds, Soft, Non-Tender, No Distention (Female) Exam: Deferred Rectal (Female) Exam: Deferred Back Exam: Reports: Normal Inspection, Full Range of Motion Extremities: Normal Inspection, Normal Range of Motion, Non-Tender, No Pedal Edema, Normal Capillary Refill Skin: Reports: Warm, Dry, Intact Neurological: Reports: No New Focal Deficit Psy/Mental Status: Reports: Alert, Normal Affect, Normal Mood
[2019-11-30] MEDS: Sodium Chloride 0.9% 10 ML Syringe FLUSH PRN (13:26)
[2019-11-30] MEDS ORDERED: METOPROLOL TARTRATE 25 MG PO SCH ×2 (20:00→21:00)
[2019-11-30] MEDS ORDERED: Metoprolol Tartrate 50 MG Tab PO SCH (21:00)
== END 2019-11-30 14:10 ==
LOC: JD.ED 20:02 → JD.MS 11-29 01:03
PROVIDERS: ADMIT Pediatrics; ATTEND Pediatrics
DX: I25.9 Chronic ischemic heart disease, unspecified (principal); E78.00 Pure hypercholesterolemia, unspecified; I10 Essential (primary) hypertension; Z79.82 Long term (current) use of aspirin; Z79.899 Other long term (current) drug therapy; Z20.828 Contact with and (suspected) exposure to other viral communicable diseases
CPT/HCPCS: 36415; 71045; 78452; 80048; 80053; 80061; 83735; 83880; 84484; 85025; 85610; 85730; 93005; 93017; 96365; 96366; 96372; 99285; A9270; A9500; G0378; J1650; J2785; J3475; U0002; 93010; 93016; 93018; 99217; 99220